=== PATIENT | male | born 1970 | race Caucasian/White ===

== ENCOUNTER 2020-08-19 13:48 | Emergency (ER) | payer OTHER ==
[~2020-08-19] VITALS: Ht 165.1 cm; Wt 86.2 kg
[2020-08-19] MEDS ORDERED: SODIUM CHLORIDE 0.9% 1000ML 1,000 ML IV STA (13:56)
[2020-08-19] MEDS ORDERED: ONDANSETRON HCL INJ 2MG/ML 2ML 2 MG/ML VIAL IV PRN (14:00)
[2020-08-19] MEDS ORDERED: PANTOPRAZOLE 40 MG 10ML VIAL IV STA (14:06)
[2020-08-19] MEDS ORDERED: ONDANSETRON HCL INJ 2MG/ML 2ML 2 MG/ML VIAL IV STA (14:06)
[2020-08-19 14:19] LABS: BASOPHILS # (AUTO) 0.1 (0.0-0.1); BASOPHILS % 1.3 % (0.0-1.0); EOSINOPHILS # (AUTO) 0.1 (0.0-0.4); EOSINOPHILS % 1.3 % (0.0-6.0); HEMATOCRIT 42.3 % (38.2-49.6); HEMOGLOBIN 14.4 g/dL (14.0-18.0); LYMPHOCYTES # (AUTO) 0.5 (1.0-3.2); LYMPHOCYTES % 12.9 % (18.0-39.1); MEAN CORPUSCULAR HEMOGLOBIN 35.3 pg (28-32); MEAN CORPUSCULAR VOLUME 103.7 fL (81-99); MONOCYTES # (AUTO) 0.3 (0.2-0.8); MONOCYTES % 8.2 % (4.4-11.3); NEUTROPHILS # (AUTO) 2.9 (2.1-6.9); NEUTROPHILS % 75.5 % (38.7-80.0); RED BLOOD COUNT 4.08 x10e6/uL (4.3-5.7); RED CELL DISTRIBUTION WIDTH 13.7 % (11.7-14.4)
[2020-08-19 14:24] LABS: PLATELET COUNT 75 x10e3/uL (140-360)
[2020-08-19 14:54] LABS: ALANINE AMINOTRANSFERASE 34 IU/L (0-55); ALBUMIN 3.6 g/dL (3.5-5.0); ALBUMIN/GLOBULIN RATIO 0.8 (0.8-2.0); ALKALINE PHOSPHATASE 148 IU/L (40-150); ANION GAP 24.2 mmol/L (8-16); BLOOD UREA NITROGEN 7 mg/dL (7-26); BUN/CREATININE RATIO 9 (6-25); CALCIUM 8.6 mg/dL (8.4-10.2); CARBON DIOXIDE 16 mmol/L (22-29); CHLORIDE 100 mmol/L (98-107); CREATININE, SERUM 0.75 mg/dL (0.72-1.25); EST GLOMERULAR FILTRATION RATE > 60 ML/MIN (60-); GLUCOSE 88 mg/dL (74-118); LIPASE 36 U/L (8-78); POTASSIUM 4.2 mmol/L (3.5-5.1); SODIUM 136 mmol/L (136-145)
[2020-08-19] MEDS ORDERED: SODIUM CHLORIDE 0.9% 50ML 50 ML ONE (15:32)
[2020-08-19] MEDS ORDERED: IOPAMIDOL 370 MG/ML 200 ML INFUS..BTL INJ ONE (15:33)
[2020-08-19] MEDS ORDERED: HALOPERIDOL LACTATE 5 MG/ML VIAL IV ONE (15:45)
[2020-08-19] MEDS ORDERED: CHLORDIAZEPOXIDE HCL 25 MG CAP PO ONE ×2 (16:15)
[2020-08-19 18:01] VITALS: BP 142/80
== END 2020-08-19 18:03 | disposition home or self-care (01) ==
LOC: ER 14:00
DX: R11.2 Nausea with vomiting, unspecified (principal); R10.9 Unspecified abdominal pain; K70.30 Alcoholic cirrhosis of liver without ascites; R94.31 Abnormal electrocardiogram [ECG] [EKG]
CPT/HCPCS: 36415; 74177; 80053; 83690; 84484; 85025; 93005; 99283; C9113; J1630; J2405; J7030; Q9967

== ENCOUNTER 2023-01-14 15:57 | Inpatient (IN) | payer OTHER ==
[~2023-01-14] VITALS: Ht 165.1 cm; Wt 90.7 kg
[~2023-01-14 15:57] MED LIST: LACTULOSE20 GM/30 M PO; MAGNESIUM OXID400 MG PO; PEPCID20 MG PO; SPIRONOLACTONE25 MG PO; TORSEMIDE20 MG PO; VITAMIN B-1100 M1 PO; VITAMIN D250 MC1 PO; ZOLOFT50 MG PO
[2023-01-14 16:33] LABS: BASOPHILS # (AUTO) 0.1 (0.0-0.1); BASOPHILS % 1.3 % (0.0-1.0); EOSINOPHILS # (AUTO) 0.1 (0.0-0.4); EOSINOPHILS % 1.5 % (0.0-6.0); HEMATOCRIT 28.7 % (38.2-49.6); LYMPHOCYTES # (AUTO) 1.6 (1.0-3.2); LYMPHOCYTES % 23.6 % (18.0-39.1); MEAN CORPUSCULAR HEMOGLOBIN 34.1 pg (28-32); MEAN CORPUSCULAR HGB CONC 34.8 g/dL (31-35); MONOCYTES # (AUTO) 0.9 (0.2-0.8); MONOCYTES % 13.8 % (4.4-11.3); NEUTROPHILS % 58.9 % (38.7-80.0); PLATELET COUNT 78 x10e3/uL (140-360); RED BLOOD COUNT 2.93 x10e6/uL (4.3-5.7); RED CELL DISTRIBUTION WIDTH 15.2 % (11.7-14.4); WHITE BLOOD COUNT 6.82 x10e3/uL (4.8-10.8)
[2023-01-14 17:44] LABS: ALBUMIN 2.4 g/dL (3.5-5.0); ALBUMIN/GLOBULIN RATIO 0.6 (0.8-2.0); ANION GAP 11.8 mmol/L (8-16); CALCIUM 8.7 mg/dL (8.4-10.2); CREATININE, SERUM 1.43 mg/dL (0.72-1.25); POTASSIUM 4.8 mmol/L (3.5-5.1)
[2023-01-14 17:55] LABS: INR 1.83; PROTHROMBIN TIME 21.6 seconds (11.9-14.5)
[2023-01-14] MEDS ORDERED: SODIUM CHLORIDE FLUSH 10 ML SYR INJ PRN (18:15)
[2023-01-14] MEDS ORDERED: ONDANSETRON HCL INJ 2MG/ML 2ML 2 MG/ML VIAL IV PRN (18:15)
[2023-01-14 18:22] LABS: CLARITY,URINE CLEAR (CLEAR); COLOR,URINE YELLOW (YELLOW)
[2023-01-14 18:23] LABS: KETONES,URINE NEGATIVE (NEGATIVE); LEUKOCYTE ESTERASE ,URINE NEGATIVE (NEGATIVE); NITRITE,URINE NEGATIVE (NEGATIVE); PROTEIN,URINE DIPSTICK NEGATIVE (NEGATIVE); URINE UROBILINOGEN 0.2 mg/dL (0.2 - 1)
[2023-01-14 18:31] LABS: BACTERIA,URINE FEW /HPF; EPITHELIAL CELLS,URINE FEW /LPF; RBC,URINE 0-5 /HPF (0-5); WBC,URINE (MAN) 0-5 /HPF (0-5)
[2023-01-14 21:10] VITALS: BP 132/64; PULSE 95; RESP 18; TEMP 98.5; O2SAT 100
[2023-01-14 21:40] VITALS: BP 132/64; PULSE 95; RESP 18; TEMP 98.5; O2SAT 100
[2023-01-14] MEDS ORDERED: ULTRAM 50MG50 MG PO (21:41)
[2023-01-14] MEDS: LACTULOSE SYRUP 20 GM/30 ML UDC PO SCH (21:49)
[2023-01-14 21:50] VITALS: BP 132/64; PULSE 95; RESP 18; TEMP 98.5; O2SAT 100
[2023-01-14 23:15] VITALS: BP 100/70; PULSE 96; RESP 16; TEMP 98.2; O2SAT 100
[2023-01-15] VITALS (7 sets, daily range): BP systolic 114–124; BP diastolic 65–87; PULSE 91–97; RESP 18–20; TEMP 97.6–98.4; O2SAT 99–100
[2023-01-15 05:29] LABS: BASOPHILS # (AUTO) 0.1 (0.0-0.1); BASOPHILS % 1.3 % (0.0-1.0); EOSINOPHILS # (AUTO) 0.1 (0.0-0.4); EOSINOPHILS % 2.1 % (0.0-6.0); HEMATOCRIT 27.5 % (38.2-49.6); HEMOGLOBIN 9.7 g/dL (14.0-18.0); LYMPHOCYTES # (AUTO) 1.5 (1.0-3.2); LYMPHOCYTES % 27.5 % (18.0-39.1); MEAN CORPUSCULAR HEMOGLOBIN 34.2 pg (28-32); MEAN CORPUSCULAR HGB CONC 35.3 g/dL (31-35); MEAN CORPUSCULAR VOLUME 96.8 fL (81-99); MONOCYTES # (AUTO) 0.6 (0.2-0.8); MONOCYTES % 12.1 % (4.4-11.3); NEUTROPHILS % 56.4 % (38.7-80.0); RED BLOOD COUNT 2.84 x10e6/uL (4.3-5.7); RED CELL DISTRIBUTION WIDTH 14.7 % (11.7-14.4); WHITE BLOOD COUNT 5.28 x10e3/uL (4.8-10.8)
[2023-01-15 05:44] LABS: ALBUMIN 2.4 g/dL (3.5-5.0); ALBUMIN/GLOBULIN RATIO 0.7 (0.8-2.0); ANION GAP 13.1 mmol/L (8-16); CALCIUM 8.5 mg/dL (8.4-10.2); CREATININE, SERUM 1.2 mg/dL (0.72-1.25); POTASSIUM 4.1 mmol/L (3.5-5.1)
[2023-01-15 06:42] LABS: PLATELET COUNT 60 x10e3/uL (140-360)
[2023-01-15] MEDS: LACTULOSE SYRUP 20 GM/30 ML UDC PO SCH ×3 (08:11→21:34)
[2023-01-15] MEDS ORDERED: SIMETHICONE 80 MG CHEW PO PRN (09:00)
[2023-01-15] MEDS ORDERED: ALBUTEROL/IPRATROPIUM 3 ML NEB NEB PRN (09:00)
[2023-01-15] MEDS ORDERED: SODIUM CHLORIDE 0.9% 500ML 500 ML IV ONE (09:45)
[2023-01-15] MEDS ORDERED: ONDANSETRON HCL 4 MG ORAL DISINTEGRATING TAB PO PRN (11:15)
[2023-01-15] MEDS: OYST-CAL-D 500MG TABLET PO SCH ×3 (11:39→21:35)
[2023-01-15] MEDS: SERTRALINE HCL 50 MG TAB PO SCH (11:40)
[2023-01-15] MEDS: FAMOTIDINE 20 MG TAB PO SCH ×2 (11:40→16:43)
[2023-01-15] MEDS ORDERED: THIAMINE HCL INJ 100 MG/ML 2ML VIAL IV ONE (23:45)
[2023-01-16] VITALS (8 sets, daily range): BP systolic 97–131; BP diastolic 53–83; PULSE 92–100; RESP 17–20; TEMP 98.1–98.4; O2SAT 99–100
[2023-01-16 00:22] LABS: % IRON SATURATION 88 % (15-50); IRON 199 ug/dL (65-175); TOTAL IRON BINDING CAPACITY 227 ug/dL (261-478); TRANSFERRIN 162 mg/dL (174-364)
[2023-01-16 05:18] LABS: BASOPHILS # (AUTO) 0.1 (0.0-0.1); BASOPHILS % 1.3 % (0.0-1.0); EOSINOPHILS # (AUTO) 0.1 (0.0-0.4); EOSINOPHILS % 1.8 % (0.0-6.0); HEMATOCRIT 26.9 % (38.2-49.6); HEMOGLOBIN 9.3 g/dL (14.0-18.0); LYMPHOCYTES # (AUTO) 1.4 (1.0-3.2); LYMPHOCYTES % 25.6 % (18.0-39.1); MEAN CORPUSCULAR HEMOGLOBIN 33.7 pg (28-32); MEAN CORPUSCULAR HGB CONC 34.6 g/dL (31-35); MEAN CORPUSCULAR VOLUME 97.5 fL (81-99); MONOCYTES # (AUTO) 0.7 (0.2-0.8); NEUTROPHILS # (AUTO) 3.2 (2.1-6.9); NEUTROPHILS % 58.7 % (38.7-80.0); PLATELET COUNT 55 x10e3/uL (140-360); RED BLOOD COUNT 2.76 x10e6/uL (4.3-5.7); RED CELL DISTRIBUTION WIDTH 14.8 % (11.7-14.4); WHITE BLOOD COUNT 5.43 x10e3/uL (4.8-10.8)
[2023-01-16 05:48] LABS: ANION GAP 12.2 mmol/L (8-16); CALCIUM 8.6 mg/dL (8.4-10.2); CREATININE, SERUM 1.21 mg/dL (0.72-1.25); POTASSIUM 4.2 mmol/L (3.5-5.1)
[2023-01-16 06:04] LABS: ALBUMIN 2.3 g/dL (3.5-5.0); BILIRUBIN,DIRECT 3.6 mg/dL (0.0-0.5)
[2023-01-16] MEDS: LACTULOSE SYRUP 20 GM/30 ML UDC PO SCH ×3 (10:10→20:41)
[2023-01-16] MEDS: THIAMINE HCL INJ 100 MG/ML 2ML VIAL IV SCH ×2 (10:11→16:13)
[2023-01-16] MEDS: SERTRALINE HCL 50 MG TAB PO SCH (10:11)
[2023-01-16] MEDS: OYST-CAL-D 500MG TABLET PO SCH ×3 (10:11→20:41)
[2023-01-16] MEDS: FAMOTIDINE 20 MG TAB PO SCH ×2 (10:11→16:12)
[2023-01-16] MEDS: RIFAXIMIN 550 MG TABLET PO SCH ×2 (10:11→16:12)
[2023-01-17 04:17] VITALS: BP 115/57; PULSE 71; RESP 19; TEMP 98.1; O2SAT 99
[2023-01-17 05:41] LABS: BASOPHILS # (AUTO) 0.1 (0.0-0.1); BASOPHILS % 1.1 % (0.0-1.0); EOSINOPHILS # (AUTO) 0.1 (0.0-0.4); HEMATOCRIT 26.2 % (38.2-49.6); HEMOGLOBIN 9.3 g/dL (14.0-18.0); LYMPHOCYTES # (AUTO) 1.3 (1.0-3.2); LYMPHOCYTES % 21.8 % (18.0-39.1); MEAN CORPUSCULAR HEMOGLOBIN 34.3 pg (28-32); MEAN CORPUSCULAR HGB CONC 35.5 g/dL (31-35); MEAN CORPUSCULAR VOLUME 96.7 fL (81-99); MONOCYTES # (AUTO) 0.8 (0.2-0.8); MONOCYTES % 12.5 % (4.4-11.3); NEUTROPHILS # (AUTO) 3.8 (2.1-6.9); NEUTROPHILS % 61.8 % (38.7-80.0); PLATELET COUNT 56 x10e3/uL (140-360); RED BLOOD COUNT 2.71 x10e6/uL (4.3-5.7); RED CELL DISTRIBUTION WIDTH 14.7 % (11.7-14.4)
[2023-01-17 06:02] LABS: ANION GAP 11.4 mmol/L (8-16); CALCIUM 8.8 mg/dL (8.4-10.2); CREATININE, SERUM 1.26 mg/dL (0.72-1.25); POTASSIUM 4.4 mmol/L (3.5-5.1)
[2023-01-17] MEDS ORDERED: THIAMINE HCL INJ 100 MG/ML 2ML VIAL IV SCH (09:00)
[2023-01-17 09:14] VITALS: BP 106/80; PULSE 98; RESP 21; TEMP 98.9; O2SAT 100
[2023-01-17] MEDS: FAMOTIDINE 20 MG TAB PO SCH (10:28)
[2023-01-17] MEDS: OYST-CAL-D 500MG TABLET PO SCH (10:28)
[2023-01-17] MEDS: LACTULOSE SYRUP 20 GM/30 ML UDC PO SCH (10:28)
[2023-01-17] MEDS: RIFAXIMIN 550 MG TABLET PO SCH (10:28)
[2023-01-17] MEDS: SERTRALINE HCL 50 MG TAB PO SCH (10:29)
[2023-01-17] MEDS ORDERED: XIFAXAN550 MG PO (10:38)
[2023-01-17 10:41] VITALS: BP 106/80; PULSE 98; RESP 21; TEMP 98.9; O2SAT 100
[2023-01-17 12:14] VITALS: BP 115/71; PULSE 92; RESP 20; TEMP 97.8; O2SAT 100
== END 2023-01-17 14:21 | disposition home or self-care (01) | DRG 442 ==
LOC: ER 16:30 → ERHOLD 18:02 → MED/SURG2 21:01 → MED/SURG 21:07 → OBSVTOIN 01-15 14:49
PROVIDERS: ADMIT Internal Medicine; ATTEND Internal Medicine
DX: K76.82 Hepatic encephalopathy (principal); E72.20 Disorder of urea cycle metabolism, unspecified; S52.502A Unspecified fracture of the lower end of left radius, initial encounter for closed fracture; E87.1 Hypo-osmolality and hyponatremia; N17.9 Acute kidney failure, unspecified; F41.9 Anxiety disorder, unspecified; F32.A Depression, unspecified; E88.09 Other disorders of plasma-protein metabolism, not elsewhere classified; D69.6 Thrombocytopenia, unspecified; K70.30 Alcoholic cirrhosis of liver without ascites; D63.8 Anemia in other chronic diseases classified elsewhere; W19.XXXA Unspecified fall, initial encounter; Z11.52 Encounter for screening for COVID-19; Z88.0 Allergy status to penicillin
CPT/HCPCS: 36415; 70450; 80048; 80053; 80076; 80320; 81001; 82140; 82607; 82728; 82746; 83540; 84466; 85025; 85045; 85610; 85730; 93005; 99284; G0378; J3411; J7040; U0002